=== PATIENT | female | born 1965 | race Caucasian/White ===

== ENCOUNTER → 2024-05-09 11:25 | Outpatient (REF) | payer BC, OTHER, SELFPAY ==
--- OUTSIDE RECORDS SUMMARY | 2024-05-09 13:30 | XMS_ITS | Clinical Summary ---
Author Organization [facility] Address [address] [place] [id number] Phone Care Team Providers Care Sephora Product Consultant Name Role Phone Provider, None Primary Care Provider Unavailabl e Allergies No known active allergies Medications indapamide (LOZOL) 1.25 MG Tablet Take 1.25 mg by mouth every morning. Active Levonorgest-Eth Estrad 91-Day (DAYSEE PO) Take by mouth. Act edwardo azithromycin (ZITHROMAX Z-ARTEMIO) 250 MG TabletIndicatio ns:Bronchitis 2 tab(s) daily for 1 day, then 1 tab(s) daily for days 2-5. 6 Tab 7 Active methylPREDNISol one (MEDROL) 4 MG Tablet Therapy PackIndications :Bronchitis Use as per instructions on package. 21 Tab 7 Active Active Problems No known active problems Family History Medical History Relation Name Comments Diabetes Father Hypertension Father Diabetes Mother Hypertension Mother Relation Name Status Comments Father Mother Social History Tobacco Use Types Packs/Day Years Used Date Smoking Tobacco: Never Smokeless Tobacco: Never Tobacco Cessation:Counseling Given: No Comments No Sex and Gender Information Value Date Recorded Sex Assigned at Not on file Legal Sex Female 11:39 PM CDT Gender Identity Not on file Sexual Orientation Not on file Last Filed Vital Signs Vital Sign Reading Time Taken Comments Blood Pressure 114/70 02/10/2017 8:37 AM VENUE MANAGER Pulse 100 02/10/2017 8:37 AM VENUE MANAGER Temperature 37.3 C (99.2 F) 02/10/2017 8:37 AM VENUE MANAGER Respiratory Rate 18 02/10/2017 8:37 AM VENUE MANAGER Oxygen Saturation 96% 02/10/2017 8:37 AM VENUE MANAGER Inhaled Oxygen Concentration - - Weight 68.5 kg (151 lb) 02/10/2017 8:37 AM VENUE MANAGER Height 162.6 cm (5' 4 ) 02/10/2017 8:37 AM VENUE MANAGER Body Mass Index 25.92 02/10/2017 8:37 AM VENUE MANAGER Plan of Treatment Health Maintenance Due Date Last Done Comments Hepatitis C Virus (HCV) Screening 1965 TdaP Immunization 1965 Hepatitis B Immunization (1 of 3 - 19+ 3-dose series) 06/14/1986 Pap Smear 06/14/1988 Cervical Cancer Screening (CCS) 06/14/1997 HPV/Cotest 06/14/1997 Colonoscopy 06/14/2012 Colorectal Cancer Screening 06/14/2012 Cologuard 06/14/2017 Immunochemical Fecal Occult Blood 06/14/2017 Mammogram 06/14/2017 Pneumococcal Immunization (5 0+ years) (1 of 1 - PCV) 06/14/2017 Zoster Immunization (1 of 2) 06/14/2017 Influenza Immunization (#1) 2023 SARS-COV-2 Immunization (1 - season) 2023 Respiratory Syncytial Virus (RSV) Immunization (Adult) (1 - 1-dose 75+ series) 06/14/2042 Meningococcal Immunization (ACWY) Aged Out No longer eligible based on patient's age to complete this topic Pneumococcal Immunization Combined Aged Out No longer eligible based on patient's age to complete this topic Rotavirus Immunization Aged Out No lo nger eligible based on patient's age to complete this topic Care Teams Sephora Product Consultant Relationship Specialty Start Date End Date Provider, None [place] PCP - General 02/10/17
--- OUTSIDE RECORDS SUMMARY | 2024-05-09 13:30 | XMS_ITS | Encounter Summary ---
Author Organization [facility] Address [address] [place] [address] Phone Care Team Providers Care Leathersmith Name Role Phone Regine Saravia MD Primary Care Provider [phone] Edis Soto MD Unavailable [phone] Encounter Details Date Type Department Care Team (Late st Contact Info) Description 02/10/2017 Orders Only [facility] [address] [place] [address] Regine Saravia MD [address] [place] [address] Social History Tobacco Use Types Packs/Day Years Used Date Smoking Tobacco: Never Smokeless Tobacco: Never Alcohol Use Standard Drinks/Week Comments Yes 1 (1 standard drink = 0.6 oz pur e alcohol) Comments No Sex and Gender Information Value Date Recorded Sex Assigned at Not on file Legal Sex Female 1:53 PM WELFARE SPECIALIST Gender Identity Not on file Sexual Orientation Not on file documented as of this encounter Plan of Treatment Not on file documented as of this encounter Procedures Procedure Name Priority Date/Time Associated Diagnosis Comments SCAN - RADIOLOGY/IMAGING 02/10/2017 9:27 AM WELFARE SPECIALIST documented in this encounter Results * SCAN - RADIOLOGY/IMAGING (02/10/2017 9:27 AM WELFARE SPECIALIST) Anatomical Region Laterality Modality Other us Regine Saravia MD Final Resu lt documented in this encounter Visit Diagnoses Not on filedocumented in this encounter Care Teams Leathersmith Relationship Specialty Start Date End Date Regine Saravia MD PCP - General 06/12/15 Edis Soto MD Gastroenterology 10/23/16 documented as of this encounter
--- OUTSIDE RECORDS SUMMARY | 2024-05-09 13:30 | XMS_ITS | Clinical Summary ---
Author Organization [facility] Address [address] [place] [address] Care Team Providers Care Debone Processing Supervisor Name Role Phone Unavailable Primary Care Provider Unavailabl e Source Comments [email or web address],non-owned Affiliates and Associated Physician Practices is amultiple site organization consisting of ambulatory clinics and hospital sitesin [place], [place], [place] and [place]. This disclosure is being madepursuant to the Care Everywhere program and may not contain all information available regarding this patient. Last updated 17.[email or web address] Immunizations Name Administration Dates Next Due Covid Pfizer primary monoval ent 12+ yr 0.3mL Purple cap 04/10/2020,03/20/2020 Social History Tobacco Use Types Packs/Day Years Used Date Smoking Tobacco: Never Assessed Sex and Gender Information Value Date Recorded Sex Assigned at Not on file Gender Identity Not on file Sexual Orientation Not on file Plan of Treatment Health Maintenance Due Date Last Done Comments COLOGUARD (AGES 45-75) - COL ON CA SCREENING 1965 COLON MONITORING 1967 COLONOSCOPY - COLON CA SCREENING 1967 CT COLONOGRAPHY - COLON CA SCREENING 1965 Colorectal Cancer Screening 1965 FIT - COLON CA SCREENING 1967 FLEX SIG - COLON CA SCREENING 1967 LIPID TESTING 1965 MAMMOGRAM 1965 PAP SMEAR 1967 HIV SCREENING 06/14/1982 HEPATITIS C SCREENING 06/10/1985 DTAP/TDAP/TD VACCINES (1 - Tdap) 06/14/1986 HEPATITIS B VACCINE (1 of 3 - 19+ 3-dose series) 06/14/1986 PNEUMOCOCCAL VACCINE 50+ (1 of 1 - PCV) 06/14/2017 ZOSTER VACCINE (1 of 2) 06/14/2017 COVID-19 VACCINE (3 - 2023-2 5 season) 2023 04/10/2020, 03/20/2020 INFLUENZA VACCINE (#1) 2023 0, 12/24/2018 DEPRESSION SCREENING 02/17/2024 HIB VACCINE Aged Out No longer eligi ble based on patient's age to complete this topic HPV VACCINE Aged Out No longer eligi ble based on patient's age to complete this topic MENINGOCOCCAL (Group B) VACCINE SHARED DECISION-MAKING Aged Out No longer eligible based on patient's age to complete this topic MENINGOCOCCAL GROUPS A/C/Y/W VACCINE Aged Out No longer eligible b ased on patient's age to complete this topic PNEUMOCOCCAL VACCINE Aged Out No long er eligible based on patient's age to complete this topic
--- OUTSIDE RECORDS SUMMARY | 2024-05-09 13:30 | XMS_ITS | Clinical Summary ---
Author Organization [facility] [address] Address [address] [place] [address] Phone Care Team Providers Care Associate Chief Nurse Name Role Phone Regine Saravia MD Primary Care Provider [phone] Edis Soto MD Unavailable [phone] Allergies No known active allergies Medications No known medications Active Problems Problem Noted Date Diagnosed Date Actinic keratosis 04/02/2022 Overview (04/02/2022): Added automatically from request for surgery [id number] Encounter for screening colonoscopy 04/02/2022 Overview (04/02/2022): Added automatically from request for surgery [id number] 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 Surgical changes from previous right hemicolectomy. 2. Otherwise unremarkable colonoscopy. RECOMMENDATIONS: 1) Follow up pathology report. 2) Depending on the findings, the patient will go on routine screening for colon cancer according to the recommendations and our plans. colon pathology 2012 COLON, ANASTOMOTIC SITE, BIOPSY -FOCAL ULCERATION OF BENIGN, ARCHITECTURALLY UNREMARKABLE COLONIC TYPE MUCOSA, CLINICALLY ANASTOMOSIS Resolved Problems Problem Noted Date Diagnosed Date Resolved Date Personal history of colon cancer 04/02/2022 02/03/2023 Overview (04/02/2022): Added automatically from request for surgery [id number] Personal history of colonic polyps 04/02/2022 02/03/2023 Overview (04/02/2022): Added automatically from request for surgery [id number] Frequent headaches 11/25/2017 9 Encounter for contraceptive management 10/28/2016 12/24/2018 Pes planus of both feet 10/28/201609/2018 Overview (10/28/2016): Discovered October 2016 visit arch treatment advised, early bunions bilateral Chronic migraine 10/23/2016 12/24/2018 Benign hypertension 10/23/2016 01/02/20 20 Immunizations Immunization Administration Dates Next Due Influenza, Quadrivalent, Spl it, Preservative Free, Intramuscular 12/24/2018 Influenza, Unspecified 11/19/2022,2021,11/12/2020,11/10 MMR 10/18/1991 Tdap 01/08/2021,01/06/2012 ZOSTER Recombinant 09/07/2018,07/06/2018 Surgical History Surgery Date Site/Laterality Comments APPENDECTOMY Appendectomy HEMICOLECTOMY 11/17/2011 - 12/17/2011 Right right hemicolectomy for appendix cancer followed by Dr. Soto every 5 year colonoscopy last done 2012 COLONOSCOPY 03/17/2012 COLONOSCOPY 06/16/2017 Dr. Soto (-) capsule endoscopy, this was not a colonoscopy SECTION 02/16/1994 - 02/15/1995 COLONOSCOPY 06/16/2017 COLONOSCOPY 06/23/2022 (-) Dr. 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 Soto Mild acne Carpal tunnel syndrome Fibrocystic breast Family History Medical History Relation Name Comments Esophageal cancer Brother Diabetes Father Hypertension Father Diabetes Mother Hypertension Mother Relation Name Status Comments Brother Father Mother Social History Tobacco Use Types Packs/Day Years Used Date Smoking Tobacco: Never Smokeless Tobacco: Never Tobacco Cessation:Counseling Given: Not Answered Alcohol Use Standard Drinks/Week Comments Yes 1 (1 standard drink = 0.6 oz pur e alcohol) PHQ-2 Answer Date Recorded PHQ-2 Total Score (If total score is 3 or more points, staff should administer the PHQ-9) 0 02/03/2023 Personal Safety Answer Date Recorded Getting School Help Needed Not on file 08/04 Education Answer Date Recorded What is the highest level of school you have completed or the highest degree you have received? 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 [place] Not on file Not on file Not on file Obstetrics History Para Term AB IAB SAB Ectopic Multiple Livin g Live Births 2 2 2 0 0 2 2 Date Outcome GA Total Labor Labor/2nd/3rd Weight Sex Type Anes PTL Kandi A1 A5 Name Clin 1994 Term 3.997 kg (8 lb 13 oz) F CS-LT ranv Living Complications:Face presentat ion of fetus 1997 Term 3.969 kg (8 lb 12 oz) F Living Last Filed Vital Signs Vital Sign Reading Time Taken Comments Blood Pressure 110/80 06/12/2023 9:29 AM CDT Pulse 67 02/03/2023 9:41 AM COAL CONVEYOR OPERATOR Temperature 36.4 C (97.5 F) 02/03/2023 9:41 AM COAL CONVEYOR OPERATOR Respiratory Rate 18 02/03/2023 9:41 AM COAL CONVEYOR OPERATOR Oxygen Saturation 98% 02/03/2023 9:41 AM COAL CONVEYOR OPERATOR Inhaled Oxygen Concentration - - Weight 64.4 kg (142 lb) 06/12/2023 9:29 AM CDT Height 162.6 cm (5' 4 ) 06/12/2023 9:29 AM CDT Body Mass Index 24.37 06/12/2023 9:29 AM CDT Plan of Treatment Health Maintenance Due Date Last Done Comments Hepatitis C Screening 1965 Hepatitis B Screening 06/14/1985 Depression Screening 02/04/2024 02/03/2023, 01/13/2022, 01/08/2021, Additional history exists Breast Cancer Screening-Mammogram 06/11/2024 06/12/2023, 06/09/2022, 06/03/2021, Additional history exists Cervical Cancer Screening 06/11/20242023, 06/12/2023, 05/09/2019 Regular Well Visit/Exam 18-64 06/11/2024 06/12/2023, 02/03/2023, 06/02/2022, Additional history exists DTaP/Tdap/Td Vaccine (3 - Td or Tdap) 01/08/2031 01/08/2021, 01/06/2012 Colon Cancer Screening-Colonoscopy 06/23/2032 06/23/2022, 06/16/2017, 03/17/2012 Zoster Vaccine Completed 09/07/2018, 07/06/2018 Colon Cancer Screening-CT Colonography Discontinued 06/23/2022, 06/16/2017, 03/17/2012 Colon Cancer Screening-DNA Stool Discontinued 06/23/2022, 06/16/2017, 03/17/2012 Colon Cancer Screening-FIT Discontinued 06/23, 06/16/2017, 03/17/2012 Colon Cancer Screening-Sigmoidoscopy Discontinued 06/23/2022, 06/16/2017, 03/17/2012 Influenza Vaccine Completed 11/24/2023, , 11/13/2021, Additional history exists Covid-19 Vaccine Completed 01/20/2024, , 09/29/2021, Additional history exists Pneumococcal vaccine <65 Aged Out No longer eligible based on patient's age to complete this topic Procedures Procedure Name Priority Date/Time Associated Diagnosis Comments HIGH RISK HPV DNA DETECTION WITH GENOTYPING Routine 06/12/2023 10:19 AM CDT Screening for malignant neoplasm of the cervix SCREENING MAMMOGRAM BILATERAL W ANDREA Schedule Routine, Read Routine (OP Routine) 06/12/2023 10:13 AM CDT Encounter for screening mammogram for malignant neoplasm of breast COLONOSCOPY 06/23/2022 8:07 AM CDT from Last 3 Months or Most Recently Relevant to Health Maintenance Results * High Risk HPV DNA Detection with Genotyping (Molecular component) (06/12/2023 10:19 AM CDT) HPV HR 16 Not Detected Not Detected [facility] Comment:Testing performed by : [facility], [address] [place]., [address] HPV HR 18 Not Detected Not Detected [facility] Comment:Testing performed by : [facility], [address] [place]., [address] HPV HR Non 16/18 Not Detected Not Detected [facility] Comment: Interpretive Data Nucleic acid amplification for detection of high-risk Human Papilloma virus (HPV) is performed by the Radha Lizzeth 6800 HPV test. This assay specifically detects HPV-16 and HPV-18 genotypes. The following HPV genotypes are detected as high-risk HPV: HPV-31, 33, 35, ,39, 45, 51, 52, 56, 58, 59, 66, and 68. This assay has been approved by the [place] Food and Drug Administration for detection of HPV in cervical specimens collected by a physician using an endocervical brush/spatula or cervical broom and placed in the ThinPrep Pap Test PreservCyt collection containers. The performance characteristics of this test have been verified by the [facility] Molecular Infectious Disease laboratory. Correlate with separately reported cytology results, as applicable. Interpretive data last revised 22 Testing performed by: [facility], [address] [place]., [address] Endocervical 06/12/2023 10:1 9 AM CDT 2023 12:53 PM CDT Narrative [facility] - 06/16/2023 12:34 AM CDT Clinical history and diagnosis->DX Z12.4 Testing type->Screening Last menstrual period (date if known)->N/A Previous negative PAP?->Yes us Fallon Fontana MD LAB BODY FLUIDS AND S TOOLS ORDERABLES Final Result [facility] [address] [place] [address] [facility] * Screening Mammogram Bilateral W Andrea (06/12/2023 10:13 AM CDT) Anatomical Region Laterality Modality Breast Bilateral Mammography 06/12/2023 4:12 PM CDT Impressions 06/12/2023 4:12 PM CDT There is no mammographic evidence of malignancy. A 1 year screening mammogram is recommended. BI-RADS: 1 - Negative. The patient has been or will be contacted. The patient will be entered into a reminder system with a target due date of 1 year for her next mammogram. Electronically signed by: Manjula Lima M.D. Narrative 06/12/2023 4:12 PM CDT EXAMINATION: SCREENING MAMMOGRAM BILATERAL W ANDREA ORDERING HEALTHCARE PROVIDER: FALLON FONTANA HISTORY: Routine screening mammography. COMPARISON: 06/09/2022, 06/06/2021, 06/03/2021, 10/25/2012 TECHNIQUE: CC and MLO views of the bilateral breasts were obtained with digital technique using breast tomosynthesis with C view. Computer aided detection was utilized. FINDINGS: DENSITY: There are scattered fibroglandular elements in the bilateral breasts. BREASTS: There are no suspicious masses, suspicious calcifications, or other suspicious findings in either breast. There has been no suspicious interval change. us Fallon Fontana MD IMG MAMMO PROCEDURES Final Result * COLONOSCOPY (06/23/2022 8:07 AM CDT) Anatomical Region Laterality Modality Other Narrative Procedure Note Edis Soto MD - 06/23/2022 8:07 AM CDT [facility] Patient Name: Pattie Gordillo Procedure Date: 06/23/2022 8:07 AM Date of : 1965 Admit Type: Outpatient Age: 57 Gender: Female Attending MD: Edis Soto M.D. Room: [facility] ENDOSCOPY ROOM 1 Note Status: Finalized Patient Profile: This is a 57 year old female. 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 No family history of colon cancer. Procedure: Colonoscopy Indications: High risk colon cancer surveillance: Personalhistory of colon cancer, Last colonoscopy: June 2017 Referring MD: Regine Saravia M.D. Providers: Edis Soto M.D. Impression: - Granularity at the colonic anastomosis.Biopsied. - The entire examined colon is normal otherwise. - Internal hemorrhoids. Recommendation: - Await pathology results. - Repeat colonoscopy in 5 years for screeningpurposes. Medicines: Monitored Anesthesia Care Complications: No immediate complications. Estimated Blood Loss: Estimated blood loss: none. Procedure: Pre-Anesthesia Assessment: - Prior to the procedure, a History and Physicalwas performed, and patient medications and allergieswere reviewed. The patient's tolerance of previous anesthesia was also reviewed. The risks andbenefits of the procedure and the sedation options and risks were discussed with the patient. All questions were answered, and informed consent was obtained. Prior Anticoagulants: The patient has taken noanticoagulant or antiplatelet agents. ASA Grade Assessment: II -A patient with mild systemic disease. After reviewing the risks and benefits, the patient was deemed in satisfactory condition to undergo the procedure. The benefits, risks and alternatives of theprocedure and sedation were discussed and informed consentwas obtained. All questions were answered. Please referto the signed informed consent document in the medical record. The bowel preparation used was Miralax and bisacodyl tablets via split dose instruction. The scope was passed under direct vision. The Pediatric Colonoscope [id number] was introducedthrough the anus and advanced to the the ileocolonic anastomosis. The quality of the bowel preparationwas good. Bowel prep was administered using a splitdose. Findings: The perianal and digital rectal examinations were normal. A localized area of granular mucosa with erosions was found at the ileocolonic anastomosis. Biopsies were taken with a cold forceps for histology. The colon (entire examined portion) appeared normal otherwise. Nopolyps and no mass lesions noted. Internal hemorrhoids were found during retroflexion. The hemorrhoids were small. Electronically signed by Edis Soto M.D. Edis Soto M.D. 06/23/2022 9:44:10 AM Number of Addenda: 0 Note Initiated On: 06/23/2022 8:07 AM Procedure Code(s): --- Professional --- 66481, Colonoscopy, flexible; with biopsy, single or multiple Diagnosis Code(s): --- Professional --- Z85.038, Personal history of other malignant neoplasm of largeintestine K63.89, Other specified diseases of intestine K64.8, Other hemorrhoids CPT copyright 2020 [employer]. All rights reserved. The codes documented in this report are preliminary and upon dehydrogenation operator head reviewmay be revised to meet current compliance requirements. Recognized by the [place] [employer] for promoting quality in endoscopy Edis Soto MD ENDOSCOPY PROCEDURES Final Result from Last 3 Months or Most Recently Relevant to Health Maintenance Insurance [id number] [facility] ERIC [place] [id number] [facility] CHOICE PLUS [employer] [place] [id number] [facility] CHOICE PLUS [address] [facility] CHOICE PLUS [facility] FEDERAL Advance Directives For more information, please contact: [phone] Documents on File Type Date Recorded Patient Heel Turner Expl anation ADVANCE DIRECTIVE 10/05/2012 POWER OF A [employer]TORNEY[employer] * Full Code (Latest Code Status on File) Date Activated Date Inactivated Comments 06/23/2022 7:41 AM 06/23/2022 2:38 PM * Full Code Date Activated Date Inactivated Comments 06/23/2022 7:41 AM 06/23/2022 7:41 AM * Full Code Date Activated Date Inactivated Comments 06/16/2017 8:17 AM 06/16/2017 12:04 PM Care Teams Associate Chief Nurse Relationship Specialty Start Date End Date Regine Saravia MD PCP - General 06/12/15 Edis Soto MD Gastroenterology 10/23/16
--- OUTSIDE RECORDS SUMMARY | 2024-05-09 13:30 | XMS_ITS | Referral Summary ---
Author Organization [facility] [address] Address [address] [place] [address] Phone Care Team Providers Care Concrete Sculptor Name Role Phone Regine Saravia MD Primary Care Provider [phone] Edis Soto MD Unavailable [phone] Allergies No known active allergies Medications No known medications Active Problems Problem Noted Date Diagnosed Date Actinic keratosis 04/02/2022 Overview (04/02/2022): Added automatically from request for surgery [id number] Encounter for screening colonoscopy 04/02/2022 Overview (04/02/2022): Added automatically from request for surgery [id number] 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 Overview (10/23/2016): [...] (04/02/2022): Added automatically from request for surgery [id number] Personal history of colonic polyps 04/02/2022 02/03/2023 Overview (04/02/2022): Added automatically from request for surgery [id number] Frequent headaches 11/25/2017 9 Encounter for contraceptive management 10/28/2016 12/24/2018 Pes planus of both feet 10/28/201609/2018 Overview (10/28/2016): Discovered October 2016 visit arch treatment advised, early bunions bilateral Chronic migraine 10/23/2016 12/24/2018 Benign hypertension 10/23/2016 01/02/20 20 Immunizations Immunization Administration Dates Next Due Influenza, Quadrivalent, Spl it, Preservative Free, Intramuscular 12/24/2018 Influenza, Unspecified 11/19/2022,2021,11/12/2020,11/10 MMR 10/18/1991 Tdap 01/08/2021,01/06/2012 ZOSTER Recombinant 09/07/2018,07/06/2018 Social History Tobacco Use Types Packs/Day Years [...] on file Legal Sex Female 1:53 PM [employer] Gender Identity Not on file Sexual Orientation Not on file 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 [place] Not on file Not on file Not on file Last Filed Vital Signs Vital Sign Reading Time Taken Comments Blood Pressure 110/80 06/12/2023 9:29 AM CDT Pulse 67 02/03/2023 9:41 AM [employer] Temperature 36.4 C (97.5 F) 02/03/2023 9:41 AM [employer] Respiratory Rate 18 02/03/2023 9:41 AM HE[employer]REATING [employer]ER Oxygen Saturation 98% 02/03/2023 9:41 AM HE[employer]REATING [employer]ER Inhaled Oxygen Concentration - - Weight 64.4 kg (142 lb) 06/12/2023 9:29 AM CDT Height 162.6 cm (5' 4 ) 06/12/2023 9:29 AM CDT Body Mass Index 24.37 06/12/2023 9:29 AM CDT Plan of Treatment Not on file Procedures Procedure Name Priority Date/Time Associated Diagnosis [...] HPV HR 16 Not Detected Not Detected [facility] Comment:Testing performed by : [facility], [address] [facility] [place]., [address] HPV HR 18 Not Detected Not Detected [facility] Comment:Testing performed by : [facility], [address] [place]., [address] HPV HR Non 16/18 Not Detected Not Detected [facility] Comment: Interpretive Data Nucleic acid amplification for [...] this test have been verified by the [facility] Molecular Infectious Disease laboratory. Correlate with separately reported cytology results, as applicable. Interpretive data last revised 22 Testing performed by: [facility], [address] [place]., [address] Endocervical 06/12/2023 10:1 9 AM CDT 2023 12:53 PM CDT Narrative [facility] [place] 06/16/2023 12:34 AM CDT Clinical history and diagnosis->DX Z12.4 Testing type->Screening Last menstrual period (date if known)->N/A Previous negative PAP?->Yes us Fallon Fontana MD LAB BODY FLUIDS AND S TOOLS ORDERABLES Final Result [facility] [id number] [facility] [place] [address] [facility] * Screening Mammogram Bilateral W Andrea [...] for her next mammogram. Electronically signed by: Maeve David 06/12/2023 4:12 PM CDT EXAMINATION: SCREENING MAMMOGRAM [...] Soto MD - 06/23/2022 8:07 AM CDT Digestive [facility] Patient Name: Pattie Gordillo Procedure Date: 06/23/2022 8:07 AM Date of : 1965 Admit Type: Outpatient Age: 57 Gender: Female Attending MD: Edis Soto M.D. Room: [facility] END[facility] ROOM 1 Note Status: Finalized Patient [...] under direct vision. The Pediatric Colonoscope [id number] was introducedthrough the anus and advanced to [...] 8:07 AM Procedure Code(s): --- Professional --- 52032, Colonoscopy, flexible; with biopsy, single or multiple Diagnosis Code(s): --- Professional --- Z85.038, Personal history of other malignant neoplasm of largeintestine K63.89, Other specified diseases of intestine K64.8, Other hemorrhoids CPT copyright 2020 [employer]. All rights reserved. The codes documented in this report are preliminary and upon barrel rifler hook reviewmay be revised to meet current compliance requirements. Recognized by the [employer] for promoting quality in endoscopy Edis Soto MD ENDOSCOPY PROCEDURES Final Result from Last 3 Months or Most Recently Relevant to Health Maintenance Insurance [facility] Address: [facility] [address] [place] [address] [facility] H[facility]/PPO Address: [address] [place] [address] [facility] Address: [address] [place] [address] [facility] H[facility]/PPO Address: [address] [place] [address] Advance Directives For more information, please contact: [phone] Documents on File Type Date Recorded Patient Manager Technical Services Expl anation ADVANCE DIRECTIVE 10/05/2012 P[employer] * Full Code (Latest Code Status on File) Date Activated Date Inactivated Comments 06/23/2022 7:41 AM 06/23/2022 2:38 PM * Full Code Date Activated Date Inactivated Comments 06/23/2022 7:41 AM 06/23/2022 7:41 AM * Full Code Date Activated Date Inactivated Comments 06/16/2017 8:17 AM 06/16/2017 12:04 PM Care Teams Concrete Sculptor Relationship Specialty Start Date End Date Regine Saravia MD PCP - General 06/12/15 Edis Soto MD Gastroenterology 10/23/16
== END ==
LOC: ANHLAB 11:25
PROVIDERS: Visit Provider Plastic Surgery
DX: C44.92 Squamous cell carcinoma of skin, unspecified (principal)
CPT/HCPCS: 88305